=== PATIENT | female | born 1990 | race Caucasian/White ===

== ENCOUNTER 2018-07-02 06:22 | Inpatient (IN) | payer OTHER ==
[~2018-07-02 06:22] MED LIST: BUTORPHANOL 1 MG/ML INJ IV PRN; CARBOPROST TROME 250 MCG/ML IM PRN; METHYLERGONOVINE 0.2MG/ML AMP IM PRN; PROMETHAZINE 25 MG/ML VIAL IV PRN; Ringers Lactate 1,000 ML IV PRN
[2018-07-02 06:51] LABS: RPR Titer ND
[2018-07-02] MEDS ORDERED: Ringers Lactate 1,000 ML IV SCH (07:00)
[2018-07-02 07:02] LABS: Absolute Lymphocytes (CBC) 2.5 K/uL (0.7-4.9); Absolute Monocytes 0.6 K/uL (0.1-1.3); Absolute Neutrophil 5.4 K/uL (1.8-8.0); Basophils % 0.6 % (0-1.3); Eosinophils % 0.4 % (0-4.4); Hematocrit 37.6 % (36.0-45.0); MPV 11.1 fL (7.6-11.3); Monocytes % 6.8 % (3.3-12.3); RBC Red Blood Cell Count 4.17 M/uL (3.86-4.86)
[2018-07-02] MEDS ORDERED: OXYTOCIN/LR 20 UNIT/1,000 ML BAG IV ONE (07:26)
[2018-07-02 07:43] VITALS: BMI 25.8
[2018-07-02] MEDS ORDERED: FENTANYL CITR 100 MCG/2 ML IV ONE (07:46)
[2018-07-02] MEDS ORDERED: ROPIVACAINE HCL 2 MG/ML 100ML IV ONE (07:47)
[2018-07-02] MEDS ORDERED: ROPIVACAINE HCL 100 ML IV ONE (07:47)
[2018-07-02] MEDS ORDERED: OXYTOCIN/LR 20 UNIT/1,000 ML BAG IV SCH ×2 (08:00→14:00)
--- NOTE | 2018-07-02 08:00 | P.PN ---
Date of Service: 07/02/18 AROM, clear fluid, cx 2+/3cm, vtx, minus 2 station, reactive FHT's, plan explained to pt.
[2018-07-02] MEDS ORDERED: ROPIVACAINE HCL 20 ML ONE (08:09)
[2018-07-02 08:21] LABS: Blood Morphology Comment NOT SEEN (NOT SEEN); Platelet Estimate ADEQ
[2018-07-02] MEDS ORDERED: LIDOCAINE 1.5% W/EPI AMP 5 ML ONE (08:30)
[2018-07-02] MEDS ORDERED: EPHEDRINE SULF 50 MG/ML VIAL ONE (08:54)
[2018-07-02] MEDS ORDERED: LIDOCAINE 1% MPF 30 ML VIAL ONE (13:34)
[2018-07-02] MEDS ORDERED: FENTANYL CITR 100 MCG/2 ML ONE (13:36)
[2018-07-02] MEDS ORDERED: METHYLERGONOVINE 0.2MG/ML AMP IM PRN (13:49)
[2018-07-02] MEDS ORDERED: ACETAMINOPHEN 500 MG TAB PO PRN (13:49)
[2018-07-02] MEDS ORDERED: ONDANSETRON 4 MG (ODT) TAB PO PRN (13:49)
[2018-07-02] MEDS ORDERED: METHYLERGONOVINE 0.2 MG TAB PO PRN (13:49)
[2018-07-02] MEDS ORDERED: CARBOPROST TROME 250 MCG/ML IM PRN (13:49)
--- NOTE | 2018-07-02 13:55 | P.BOP ---
Preoperative diagnosis: 39 week Postoperative diagnosis: same, delivered Primary procedure: SCVD viable male Secondary procedure: repair first degree perineal laceration Estimated blood loss: <250ml Anesthesia: epidural Complications: None Transferred to: Other (274) Condition: Good
[2018-07-02 20:39] LABS: RPR (Rapid Plasma Reagin) NON-REACT (NON-REACT)
[2018-07-03] MEDS: IBUPROFEN 200 MG TAB PO PRN ×2 (11:06)
[2018-07-03 12:07] VITALS: BP 126/75; TEMP 97.7
[2018-07-03] MEDS ORDERED: Ringers Lactate 1,000 ML IV ONE (12:50)
--- NOTE | 2018-07-04 08:47 | OP ---
Surgeon: Chuck Kinsey MD Ms. Paris is a 28-year-old female, 5, para 2-0-2-2, at 39 weeks gestation, admitted for elective induction of labor secondary to term with favorable cervix. After r upture of membranes and Pitocin induction of labor, she had a first stage of labor of 6 hours and 5 m inutes, second stage of labor of 8 minutes. She delivered by spontaneous controlled vaginal delivery a 7-pound 4-ounce male , 9 and 9. After delayed cord clamping, this was cut and the inf ant placed on mother's upper abdomen. Cord blood was obtained. Placenta was spontaneously expelled and appeared to be intact. Intrauterine examination revealed no retained placental fragments. She s uffered a first-degree perineal laceration, which was repaired with 3-0 Vicryl suture. Estimated tot al blood loss was less than 250 mL. The patient had an epidural catheter placed earlier in the cours e of labor and received excellent benefit from this. PILY/DEANDRE Voice ID: [id number] Report ID: [id number]
--- NOTE | 2018-07-04 09:17 | DS ---
Date of Discharge: 07/03/2018 Final Hospital Discharge Diagnosis: Thirty-nine week , delivered. Complications: None. Procedures: Artificial rupture of membranes. Pitocin augmentation. Induction of labor. Placement of epidural catheter. Spontaneous controlled vaginal delivery of viable male infant. Repair of firs t-degree perineal laceration. Hospital Course: The patient is a 28-year-old female, 5, para 2-0-2-2 at 3 9 weeks gestation, admitted for elective induction. She had an uneventful labor and delivery, delive red a 7-pound 4-ounce male , 9 and 9. Lab work included an admission hemoglobin and tomi tocrit of 12.8 and 37.6, dismissal 34.1. She is Rh positive blood type. Rubella immune. She was di smissed to continue taking her iron and vitamins to be seen back in my office in 1 week and to take ibuprofen or Tylenol for pain relief. PILY/DEANDRE Voice ID: [id number] Report ID: [id number]
[2018-07-04 18:33] LABS: HBsAG Nonreactive (Nonreactive)
== END 2018-07-03 15:45 | disposition home or self-care (01) | DRG 807 ==
LOC: 2ND-WC 06:22
PROVIDERS: ADMIT Specialist; ATTEND Specialist
PROC: 10E0XZZ Delivery of Products of Conception, External Approach (ICD-10-PCS; principal; 2018-07-02)
PROC: 0HQ9XZZ Repair Perineum Skin, External Approach (ICD-10-PCS; 2018-07-02)
PROC: 3E033VJ Introduction of Other Hormone into Peripheral Vein, Percutaneous Approach (ICD-10-PCS; 2018-07-02)
DX: O70.0 First degree perineal laceration during delivery (principal); Z37.0 Single live birth; Z3A.39 39 weeks gestation of pregnancy
CPT/HCPCS: 36415; 85014; 85025; 86592; 86901; 87340; J2001; J2210; J2590; J2795; J3010